=== PATIENT | female | born 1960 | race Caucasian/White ===

== ENCOUNTER 2016-09-13 18:06 | Emergency (ER) | payer MEDICAID ==
[~2016-09-13] VITALS: Ht 152.4 cm; Wt 50.9 kg
[~2016-09-13 18:06] MED LIST: ALBU18HF INH; BUSP15TA PO; CETI10TA18 PO; CITA40TA12 PO; LISI-167 PO; LORA-445 PO; MOME13HF3 INH; VITAMIN B12 INJ
[2016-09-13] MEDS ORDERED: SODIUM CHLORIDE 0.9% 1,000ML IVBOLUS ONE ×2 (19:00→20:30)
[2016-09-13] MEDS ORDERED: KETOROLAC 30 MG/1 ML IVPush ONE (19:00)
[2016-09-13] MEDS ORDERED: SODIUM CHLORIDE FLUSH 10ML SYR IVF ONE (19:00)
[2016-09-13] MEDS ORDERED: ONDANSETRON 2MG/ML, 2ML IVPush ONE (19:00)
[2016-09-13] MEDS ORDERED: ONDANSETRON 2MG/ML, 2ML ONE (19:08)
[2016-09-13] MEDS ORDERED: KETOROLAC 30 MG/1 ML ONE (19:08)
[2016-09-13 19:34] LABS: ASPARTATE AMINO TRANSFERASE 21 U/L (15-37); BLOOD UREA NITROGEN 13 mg/dL (7-18)
[2016-09-13] MEDS ORDERED: CEFTRIAXONE PMX 1GM/50ML 50 ML ONE (20:35)
[2016-09-13 20:39] VITALS: BP 115/82
[2016-09-13] MEDS ORDERED: CEFTRIAXONE PMX 1GM/50ML 50 ML IV ONE (21:00)
[2016-09-13] MEDS ORDERED: CEFTRIAXONE 1,000 MG in SODIUM CHLORIDE 0.9% 50 ML IV ONE (21:00)
== END 2016-09-13 21:26 | disposition home or self-care (01) ==
LOC: ED 21:20
DX: A41.9 Sepsis, unspecified organism (principal); N30.00 Acute cystitis without hematuria; J44.9 Chronic obstructive pulmonary disease, unspecified; I10 Essential (primary) hypertension; F17.200 Nicotine dependence, unspecified, uncomplicated; Z90.49 Acquired absence of other specified parts of digestive tract; Z88.0 Allergy status to penicillin; Z88.8 Allergy status to other drugs, medicaments and biological substances
CPT/HCPCS: 36415; 74022; 80053; 81001; 85025; 87077; 87086; 87186; 96361; 96365; 96375; 99285; J0696; J1885; J2405; J7030

== ENCOUNTER 2017-01-09 11:32 | Inpatient (IN) | payer MEDICAID ==
[~2017-01-09] VITALS: Ht 152.4 cm; Wt 50.6 kg
[2017-01-09] MEDS ORDERED: ALBUTEROL/IPRATROPIUM 2.5MG/0.5MG, 3 ML ONE (12:16)
[2017-01-09] MEDS ORDERED: ALBUTEROL SULFATE 2.5 MG/3 ML NPPB SCH (12:30)
[2017-01-09] MEDS ORDERED: IPRATROPIUM 0.5 MG/2.5 ML INHA NPPB ONE (12:30)
[2017-01-09] MEDS ORDERED: SODIUM CHLORIDE FLUSH 10ML SYR IVF ONE (12:30)
[2017-01-09 12:42] LABS: HEMATOCRIT 45.6 % (34.6-47.8); HEMOGLOBIN 15.5 g/dL (11.7-16.4); WHITE BLOOD COUNT 7.3 x10^3/uL (3.4-10)
[2017-01-09 12:51] LABS: BLOOD UREA NITROGEN 9 mg/dL (7-18)
[2017-01-09 12:56] LABS: ASPARTATE AMINO TRANSFERASE 18 U/L (15-37)
[2017-01-09 12:57] LABS: IS PT STATUS REG ER OR PRE ER? YES
[2017-01-09] MEDS: SODIUM CHLORIDE 0.9% 1,000 ML IV SCH (15:23)
[2017-01-09] MEDS ORDERED: BISACODYL 10 MG SUPP PR PRN (15:30)
[2017-01-09] MEDS ORDERED: ONDANSETRON ODT 4 MG PO PRN (15:30)
[2017-01-09] MEDS ORDERED: ACETAMINOPHEN 325 MG TABLET PO PRN (15:30)
[2017-01-09] MEDS ORDERED: POLYETHYLENE GLYCOL 17 GM PACKET PO PRN (15:30)
[2017-01-09] MEDS ORDERED: ONDANSETRON 2MG/ML, 2ML IVPush PRN (15:30)
[2017-01-09] MEDS ORDERED: DOCUSATE 100 MG CAPSULE PO PRN (15:30)
[2017-01-09] MEDS ORDERED: LABETALOL 5MG/ML, 20ML IVPush PRN (15:30)
[2017-01-09] MEDS ORDERED: HYDROcodone/APAP 5/325 TABLET PO PRN (15:30)
[2017-01-09] MEDS: LORazepam 1MG TABLET PO PRN (16:24)
[2017-01-09 16:44] VITALS: BP 136/84
[2017-01-09] MEDS ORDERED: ALBUTEROL/IPRATROPIUM 2.5MG/0.5MG, 3 ML NPPB PRN (17:00)
[2017-01-09] MEDS: HEPARIN 5,000 UNITS/ML, 1ML SQ SCH (17:04)
[2017-01-09] MEDS: POTASSIUM CHLORIDE 20 MEQ TAB.ER.PRT PO SCH (17:04)
[2017-01-09] MEDS: methylPREDNISolone SOD SUCC 125 MG/2 ML IVPush SCH (17:50)
[2017-01-09 20:38] VITALS: BP 138/83
[2017-01-09] MEDS: DOXYCYCLINE 100MG TABLET PO SCH (20:54)
[2017-01-09] MEDS: FAMOTIDINE 20 MG TABLET PO SCH (20:54)
[2017-01-10] MEDS: HEPARIN 5,000 UNITS/ML, 1ML SQ SCH ×3 (00:01→16:28)
[2017-01-10] MEDS: methylPREDNISolone SOD SUCC 125 MG/2 ML IVPush SCH ×4 (00:02→17:59)
[2017-01-10 01:45] VITALS: BP 104/70
[2017-01-10 05:41] LABS: ASPARTATE AMINO TRANSFERASE 14 U/L (15-37); BLOOD UREA NITROGEN 13 mg/dL (7-18)
[2017-01-10] MEDS: SODIUM CHLORIDE 0.9% 1,000 ML IV SCH (05:42)
[2017-01-10 05:56] LABS: HEMATOCRIT 42.1 % (34.6-47.8); WHITE BLOOD COUNT 4.8 x10^3/uL (3.4-10)
[2017-01-10 06:57] VITALS: BP 117/78
[2017-01-10] MEDS: DOXYCYCLINE 100MG TABLET PO SCH ×2 (07:48→22:09)
[2017-01-10] MEDS: LORazepam 1MG TABLET PO PRN (07:48)
[2017-01-10] MEDS: POTASSIUM CHLORIDE 20 MEQ TAB.ER.PRT PO SCH (07:48)
[2017-01-10] MEDS: LISINOPRIL 10 MG TABLET PO SCH (07:48)
[2017-01-10] MEDS: CETIRIZINE 10 MG TABLET PO SCH (07:48)
[2017-01-10] MEDS: FLUTICASONE/VILANTEROL 100-25MCG/INH INH SCH (12:51)
[2017-01-10 13:09] VITALS: BP 104/67
[2017-01-10] MEDS ORDERED: ALBUTEROL/IPRATROPIUM 2.5MG/0.5MG, 3 ML NPPB SCH (16:00)
[2017-01-10 19:10] VITALS: BP 109/71
[2017-01-10] MEDS ORDERED: DOCUSATE 100 MG CAPSULE PO PRN (20:00)
[2017-01-10] MEDS ORDERED: ONDANSETRON 2MG/ML, 2ML IVPush PRN (20:00)
[2017-01-10] MEDS ORDERED: LABETALOL 5MG/ML, 20ML IVPush PRN (20:00)
[2017-01-10] MEDS ORDERED: ONDANSETRON ODT 4 MG PO PRN (20:00)
[2017-01-10] MEDS ORDERED: BISACODYL 10 MG SUPP PR PRN (20:00)
[2017-01-10] MEDS ORDERED: POLYETHYLENE GLYCOL 17 GM PACKET PO PRN (20:00)
[2017-01-10] MEDS ORDERED: HYDROcodone/APAP 5/325 TABLET PO PRN (20:00)
[2017-01-10] MEDS: ALBUTEROL/IPRATROPIUM 2.5MG/0.5MG, 3 ML NPPB SCH (20:29)
[2017-01-10] MEDS: FAMOTIDINE 20 MG TABLET PO SCH (22:09)
[2017-01-11] MEDS: HEPARIN 5,000 UNITS/ML, 1ML SQ SCH ×4 (00:42→23:41)
[2017-01-11] MEDS: methylPREDNISolone SOD SUCC 125 MG/2 ML IVPush SCH ×5 (00:43→23:41)
[2017-01-11 01:25] VITALS: BP 116/78
[2017-01-11] MEDS: LORazepam 1MG TABLET PO PRN (06:28)
[2017-01-11 07:19] VITALS: BP 116/77
[2017-01-11] MEDS: FLUTICASONE/VILANTEROL 100-25MCG/INH INH SCH (07:52)
[2017-01-11] MEDS: CETIRIZINE 10 MG TABLET PO SCH (07:53)
[2017-01-11] MEDS: DOXYCYCLINE 100MG TABLET PO SCH ×2 (07:53→20:02)
[2017-01-11] MEDS: LISINOPRIL 10 MG TABLET PO SCH (07:53)
[2017-01-11] MEDS: ALBUTEROL/IPRATROPIUM 2.5MG/0.5MG, 3 ML NPPB SCH ×3 (08:32→20:38)
[2017-01-11 13:14] VITALS: BP 114/75
[2017-01-11] MEDS: FAMOTIDINE 20 MG TABLET PO SCH (20:02)
[2017-01-11 20:49] VITALS: BP 126/82
[2017-01-12 01:30] VITALS: BP 124/82
[2017-01-12] MEDS: methylPREDNISolone SOD SUCC 125 MG/2 ML IVPush SCH ×3 (05:50→20:55)
[2017-01-12 07:41] VITALS: BP 126/69
[2017-01-12] MEDS: FLUTICASONE/VILANTEROL 100-25MCG/INH INH SCH (08:00)
[2017-01-12] MEDS: DOXYCYCLINE 100MG TABLET PO SCH ×2 (08:01→20:55)
[2017-01-12] MEDS: CETIRIZINE 10 MG TABLET PO SCH (08:01)
[2017-01-12] MEDS: LISINOPRIL 10 MG TABLET PO SCH (08:01)
[2017-01-12] MEDS: HEPARIN 5,000 UNITS/ML, 1ML SQ SCH ×3 (08:01→23:35)
[2017-01-12] MEDS: ACETAMINOPHEN 325 MG TABLET PO PRN ×2 (08:11→16:28)
[2017-01-12] MEDS: ALBUTEROL/IPRATROPIUM 2.5MG/0.5MG, 3 ML NPPB SCH ×4 (08:38→19:45)
[2017-01-12 14:50] VITALS: BP 114/73
[2017-01-12 18:30] VITALS: BP 125/84
[2017-01-12] MEDS: FAMOTIDINE 20 MG TABLET PO SCH (20:55)
[2017-01-13 00:45] VITALS: BP 138/89
[2017-01-13] MEDS: methylPREDNISolone SOD SUCC 125 MG/2 ML IVPush SCH (05:02)
[2017-01-13] MEDS: ALBUTEROL/IPRATROPIUM 2.5MG/0.5MG, 3 ML NPPB SCH ×4 (07:15→19:41)
[2017-01-13 07:26] VITALS: BP 133/82
[2017-01-13] MEDS: CETIRIZINE 10 MG TABLET PO SCH (08:03)
[2017-01-13] MEDS: FLUTICASONE/VILANTEROL 100-25MCG/INH INH SCH (08:03)
[2017-01-13] MEDS: LISINOPRIL 10 MG TABLET PO SCH (08:04)
[2017-01-13] MEDS: HEPARIN 5,000 UNITS/ML, 1ML SQ SCH ×3 (08:04→23:57)
[2017-01-13] MEDS: DOXYCYCLINE 100MG TABLET PO SCH ×2 (08:05→20:30)
[2017-01-13] MEDS: ACETAMINOPHEN 325 MG TABLET PO PRN (12:23)
[2017-01-13 14:15] VITALS: BP 118/77
[2017-01-13 18:56] VITALS: BP 113/77
[2017-01-13] MEDS: FAMOTIDINE 20 MG TABLET PO SCH (20:30)
[2017-01-14 04:55] VITALS: BP 118/80
[2017-01-14 07:12] VITALS: BP 118/78
[2017-01-14] MEDS: ALBUTEROL/IPRATROPIUM 2.5MG/0.5MG, 3 ML NPPB SCH ×4 (07:30→20:00)
[2017-01-14] MEDS: LISINOPRIL 10 MG TABLET PO SCH (08:12)
[2017-01-14] MEDS: HEPARIN 5,000 UNITS/ML, 1ML SQ SCH ×3 (08:12→23:30)
[2017-01-14] MEDS: DOXYCYCLINE 100MG TABLET PO SCH ×2 (08:12→21:00)
[2017-01-14] MEDS: FLUTICASONE/VILANTEROL 100-25MCG/INH INH SCH (08:12)
[2017-01-14] MEDS: CETIRIZINE 10 MG TABLET PO SCH (08:13)
[2017-01-14 13:07] VITALS: BP 143/82
[2017-01-14 20:40] VITALS: BP 127/79
[2017-01-14] MEDS: FAMOTIDINE 20 MG TABLET PO SCH (21:11)
[2017-01-15 02:45] VITALS: BP 114/74
[2017-01-15] MEDS: ALBUTEROL/IPRATROPIUM 2.5MG/0.5MG, 3 ML NPPB SCH ×4 (07:00→20:00)
[2017-01-15] MEDS: HEPARIN 5,000 UNITS/ML, 1ML SQ SCH ×3 (07:30→23:30)
[2017-01-15 08:30] VITALS: BP_SYST 113; BP_SYST 121; BP_DIAS 77
[2017-01-15] MEDS: LISINOPRIL 10 MG TABLET PO SCH (08:59)
[2017-01-15] MEDS: DOXYCYCLINE 100MG TABLET PO SCH ×2 (09:00→20:06)
[2017-01-15] MEDS: CETIRIZINE 10 MG TABLET PO SCH (09:01)
[2017-01-15] MEDS: FLUTICASONE/VILANTEROL 100-25MCG/INH INH SCH (09:06)
[2017-01-15] MEDS: GUAIFENESIN ER 600 MG TABLET PO SCH ×2 (11:14→20:06)
[2017-01-15 14:00] VITALS: BP 106/67
[2017-01-15 19:30] VITALS: BP 118/74
[2017-01-15] MEDS: FAMOTIDINE 20 MG TABLET PO SCH (20:06)
[2017-01-16 01:23] VITALS: BP 104/68
[2017-01-16 05:32] VITALS: BP 123/80
[2017-01-16] MEDS: LORazepam 1MG TABLET PO PRN (05:38)
[2017-01-16 07:02] VITALS: BP 112/76
[2017-01-16] MEDS: ALBUTEROL/IPRATROPIUM 2.5MG/0.5MG, 3 ML NPPB SCH ×4 (07:36→20:30)
[2017-01-16] MEDS: DOXYCYCLINE 100MG TABLET PO SCH (09:00)
[2017-01-16] MEDS: HEPARIN 5,000 UNITS/ML, 1ML SQ SCH ×2 (09:15→20:09)
[2017-01-16] MEDS: CETIRIZINE 10 MG TABLET PO SCH (09:15)
[2017-01-16] MEDS: LISINOPRIL 10 MG TABLET PO SCH (09:15)
[2017-01-16] MEDS: GUAIFENESIN ER 600 MG TABLET PO SCH ×2 (09:16→20:09)
[2017-01-16] MEDS: FLUTICASONE/VILANTEROL 100-25MCG/INH INH SCH (09:22)
[2017-01-16 12:59] VITALS: BP 93/64
[2017-01-16] MEDS: FAMOTIDINE 20 MG TABLET PO SCH (20:09)
[2017-01-16 20:23] VITALS: BP 101/68
[2017-01-17 01:52] VITALS: BP 102/67
[2017-01-17] MEDS: HEPARIN 5,000 UNITS/ML, 1ML SQ SCH ×3 (05:20→20:00)
[2017-01-17] MEDS: ALBUTEROL/IPRATROPIUM 2.5MG/0.5MG, 3 ML NPPB SCH (07:01)
[2017-01-17 07:10] VITALS: BP 95/64
[2017-01-17] MEDS: CETIRIZINE 10 MG TABLET PO SCH (08:21)
[2017-01-17] MEDS: LISINOPRIL 10 MG TABLET PO SCH (08:25)
[2017-01-17] MEDS: FLUTICASONE/VILANTEROL 100-25MCG/INH INH SCH (08:26)
[2017-01-17] MEDS: GUAIFENESIN ER 600 MG TABLET PO SCH ×2 (08:26→20:01)
[2017-01-17] MEDS: LORazepam 1MG TABLET PO PRN (11:17)
[2017-01-17 13:14] VITALS: BP 97/60
[2017-01-17] MEDS ORDERED: BISACODYL 10 MG SUPP PR PRN (16:00)
[2017-01-17] MEDS ORDERED: POLYETHYLENE GLYCOL 17 GM PACKET PO PRN (16:00)
[2017-01-17] MEDS ORDERED: ONDANSETRON ODT 4 MG PO PRN (16:00)
[2017-01-17] MEDS ORDERED: HYDROcodone/APAP 5/325 TABLET PO PRN (16:00)
[2017-01-17] MEDS ORDERED: ACETAMINOPHEN 325 MG TABLET PO PRN (16:00)
[2017-01-17] MEDS ORDERED: LABETALOL 5MG/ML, 20ML IVPush PRN (16:00)
[2017-01-17 19:53] VITALS: BP 114/68
[2017-01-17] MEDS: FAMOTIDINE 20 MG TABLET PO SCH (20:01)
[2017-01-18 01:16] VITALS: BP 101/69
[2017-01-18] MEDS: HEPARIN 5,000 UNITS/ML, 1ML SQ SCH (05:10)
[2017-01-18 07:15] VITALS: BP 109/72
[2017-01-18] MEDS: FLUTICASONE/VILANTEROL 100-25MCG/INH INH SCH (08:04)
[2017-01-18] MEDS: LISINOPRIL 10 MG TABLET PO SCH (08:05)
[2017-01-18] MEDS: GUAIFENESIN ER 600 MG TABLET PO SCH (08:05)
[2017-01-18] MEDS: CETIRIZINE 10 MG TABLET PO SCH (08:05)
[2017-01-18] MEDS ORDERED: PRED5TAB PO (08:57)
[2017-01-18] MEDS ORDERED: FLUT1AER INH (08:57)
[2017-01-18] MEDS ORDERED: IPRA3AMP NPPB (08:57)
[2017-01-18] MEDS ORDERED: PNEUMOCOCCAL 23 VACCINE IM-VACC ONE (09:30)
== END 2017-01-18 13:18 | disposition home or self-care (01) | DRG 189 ==
LOC: ED 13:20 → EDIP 13:42 → 4WST 15:35
PROVIDERS: ADMIT Internal Medicine; ATTEND Family Medicine
DX: J96.01 Acute respiratory failure with hypoxia (principal); K56.609 Unspecified intestinal obstruction, unspecified as to partial versus complete obstruction; E44.0 Moderate protein-calorie malnutrition; J44.1 Chronic obstructive pulmonary disease with (acute) exacerbation; E87.6 Hypokalemia; F17.200 Nicotine dependence, unspecified, uncomplicated; F41.0 Panic disorder [episodic paroxysmal anxiety]; F41.1 Generalized anxiety disorder; F43.10 Post-traumatic stress disorder, unspecified; I10 Essential (primary) hypertension; T38.0X5A Adverse effect of glucocorticoids and synthetic analogues, initial encounter; Z93.3 Colostomy status; Z88.8 Allergy status to other drugs, medicaments and biological substances; Z88.0 Allergy status to penicillin; Z99.81 Dependence on supplemental oxygen
CPT/HCPCS: 36415; 71010; 80053; 83605; 83735; 83880; 84100; 84145; 84484; 85025; 87040; 87070; 87205; 90732; 93005; 94640; 99285; J1644; J2405; J7613; J7620; J7644; J2930; J7030; J7512